=== PATIENT | female | born 1945 | race Caucasian/White ===

== ENCOUNTER → 2018-10-21 | Outpatient (CLI) | payer MEDICARE ==
[~2018-10-21] MED LIST: ASPI-496 PO; LOSA1TAB25 PO; MULT-658 PO
[2018-10-21 14:48] LABS: ANION GAP 4 mmol/L (5-15); CALCIUM 9.2 mg/dL (8.5-10.1); CHLORIDE 100 mmol/L (98-107)
[2018-10-21 14:52] LABS: ALANINE AMINOTRANSFERASE 22 U/L (12-78); ALKALINE PHOSPHATASE 59 U/L (45-117); BILIRUBIN,TOTAL 1.1 mg/dL (0.2-1.0); CREATININE 0.78 mg/dL (0.55-1.02); TOTAL PROTEIN 7.1 g/dL (6.4-8.2)
== END | disposition home or self-care (01) ==
LOC: STAR 13:13
PROVIDERS: ATTEND Obstetrics & Gynecology Female Pelvic Medicine and Reconstructive Surgery
DX: Z01.818 Encounter for other preprocedural examination (principal); N81.10 Cystocele, unspecified; I49.3 Ventricular premature depolarization; I51.7 Cardiomegaly; N81.6 Rectocele; N39.3 Stress incontinence (female) (male)
CPT/HCPCS: 36415; 80053; 93005

== ENCOUNTER 2018-10-26 05:37 | Day surgery (SDC) | payer MEDICARE ==
[~2018-10-26] VITALS: Ht 160 cm; Wt 69.0 kg
[2018-10-26] MEDS ORDERED: LACTATED RINGERS 1,000 ML IV SCH (06:07)
[2018-10-26] MEDS ORDERED: BUPIVACAINE/PF 0.25% ONE (06:50)
[2018-10-26] MEDS ORDERED: NEOMY/POLYMYXIN B GU IRR. 1 ML ONE (06:51)
[2018-10-26] MEDS ORDERED: EPINEPHRINE 1 MG/ML, 1ML ONE (06:51)
[2018-10-26] MEDS ORDERED: FENTANYL PF 250 MCG/5ML ONE (07:23)
[2018-10-26] MEDS ORDERED: BUPIVACAINE/PF-EPI 0.25% 1:200K INFIL ONE (07:51)
[2018-10-26] MEDS ORDERED: ROCURONIUM 10MG/ML,5ML ONE (07:53)
[2018-10-26] MEDS ORDERED: SUCCINYLCHOLINE 20 MG/ML, 10ML ONE (07:53)
[2018-10-26] MEDS ORDERED: LIDOCAINE-MPF 2% ,5ML ONE (07:53)
[2018-10-26] MEDS ORDERED: GLYCOPYRROLATE 0.2MG/1ML, 5ML ONE (07:53)
[2018-10-26] MEDS ORDERED: DEXAMETHASONE 4 MG/ML, 1ML ONE (07:53)
[2018-10-26] MEDS ORDERED: CEFAZOLIN 1,000 MG ONE (07:53)
[2018-10-26] MEDS ORDERED: NEOSTIGMINE 1 MG/ML, 10ML ONE (07:53)
[2018-10-26] MEDS ORDERED: PROPOFOL 10 MG/ML, 20ML ONE (07:53)
[2018-10-26] MEDS ORDERED: ONDANSETRON 2MG/ML, 2ML ONE (07:53)
[2018-10-26] MEDS ORDERED: ONDANSETRON 2MG/ML, 2ML IV PRN (08:00)
[2018-10-26] MEDS ORDERED: DIAZEPAM 5 MG/ML, 2ML IVPush PRN (08:00)
[2018-10-26] MEDS ORDERED: LABETALOL 5MG/ML, 20ML IV PRN (08:00)
[2018-10-26] MEDS ORDERED: LORazepam 2 MG/ML, 1ML IVPush PRN (08:00)
[2018-10-26] MEDS ORDERED: hydrALAzine 20 MG/ML, 1ML IV PRN (08:00)
[2018-10-26] MEDS ORDERED: PROMETHAZINE 25 MG SUPP PR PRN (08:00)
[2018-10-26] MEDS ORDERED: FENTANYL PF 100 MCG/2ML IV PRN (08:00)
[2018-10-26] MEDS ORDERED: PROMETHAZINE 25 MG/ML, 1ML IV PRN (08:00)
[2018-10-26] MEDS ORDERED: HYDROmorphone 2 MG/ML, 1ML IVPush PRN (08:00)
[2018-10-26] MEDS ORDERED: OXYcodone 5 MG/5 ML ORAL.SOL UDC PO PRN (08:00)
[2018-10-26] MEDS ORDERED: ACETAMINOPHEN 325 MG TABLET PO PRN (08:00)
[2018-10-26] MEDS ORDERED: ONDANSETRON ODT 8 MG PO PRN (08:00)
[2018-10-26] MEDS ORDERED: EPHEDRINE 50 MG/ML, 1ML ONE (08:03)
[2018-10-26] MEDS ORDERED: KETOROLAC 30 MG/1 ML ONE (08:41)
[2018-10-26] MEDS ORDERED: KETOROLAC 30 MG/1 ML IVPush ONE (09:00)
== END 2018-10-26 11:45 | disposition home or self-care (01) ==
LOC: OUT 05:37
PROVIDERS: ATTEND Obstetrics & Gynecology Female Pelvic Medicine and Reconstructive Surgery
DX: N81.89 Other female genital prolapse (principal); N39.46 Mixed incontinence; Z90.710 Acquired absence of both cervix and uterus; I10 Essential (primary) hypertension; K21.9 Gastro-esophageal reflux disease without esophagitis; J45.909 Unspecified asthma, uncomplicated; Z85.828 Personal history of other malignant neoplasm of skin; Z98.890 Other specified postprocedural states; Z88.8 Allergy status to other drugs, medicaments and biological substances
CPT/HCPCS: 57265; 57282; 57288; C1771; J0171; J0330; J0690; J1100; J1885; J2405; J2704; J2710; J3010; J3490